=== PATIENT | female | born 1990 | race Caucasian/White ===

== ENCOUNTER 2017-07-17 05:57 | Emergency (ER) | payer MEDICAID ==
--- NOTE | 2017-07-17 07:28 | ER Document Report ---
HPI - HPI Patient complains to provider of: sore throat and fever Onset: Yesterday Onset/Duration: Gradual Pain Level: 4 Context: 27 yo female with sore throat, fever, odynophagia. No cough. Associated Symptoms: None Exacerbated by: Denies Relieved by: Denies - ROS ROS below otherwise negative: Yes Systems Reviewed and Negative: Yes All other systems reviewed and negative - CONSTITUTIONAL Constitutional: REPORTS: Fever - EENT EENT: REPORTS: Sore Throat Past Medical History - General Information source: Patient - Social History Smoking Status: Never Smoker Frequency of alcohol use: None Drug Abuse: None Lives with: Spouse/Significant other Family History: Reviewed & Not Pertinent Patient has suicidal ideation: No Patient has homicidal ideation: No - Medical History Medical History: Negative Renal/ Medical History: Denies: Hx Peritoneal Dialysis Surgical Hx: Negative Vertical Provider Document - CONSTITUTIONAL Agree With Documented VS: Yes Exam Limitations: No Limitations General Appearance: No Apparent Distress - INFECTION CONTROL TRAVEL OUTSIDE OF THE [place] IN LAST 30 DAYS: No - HEENT HEENT: Normocephalic, Pharyngeal Erythema - bright red. negative: Conjuctival Injection, Tympanic Membrane Red - NECK Neck: Supple, Lymphadenopathy-Left, Lymphadenopathy-Right - RESPIRATORY Respiratory: Breath Sounds Normal, No Respiratory Distress O2 Sat by Pulse Oximetry: 99 - CARDIOVASCULAR Cardiovascular: Regular Rate, Regular Rhythm - GI/ABDOMEN Gastrointestinal: Abdomen Soft, Abdomen Non-Tender, No Organomegaly - MUSCULOSKELETAL/EXTREMETIES Musculoskeletal/Extremeties: MAEW, FROM - NEURO Level of Consciousness: Awake, Alert, Appropriate - DERM Integumentary: No Rash Course - Vital Signs Vital signs: Temp Pulse Resp BP Pulse Ox 98.3 F 109 H 18 122/79 99 07/17/17 05:59 07/17/17 05:59 07/17/17 05:59 07/17/17 05:59 07/17/17 05:59 Discharge - Discharge Clinical Impression: Pharyngitis Qualifiers: Pharyngitis/tonsillitis etiology: other specified organisms Qualified Code(s): J02.8 - Acute pharyngitis due to other specified organisms Condition: Good Disposition: HOME, SELF-CARE Instructions: Acetaminophen, Anti-Inflammatory Medication ([facility]), Penicillin V K ([facility]), Sore Throat ([facility]) Additional Instructions: chloraseptic spray for the throat pain drink 2 liters of fluids today to prevent dehydartion penicillin for 10 days, continue even if you feel better to er if worse motrin and tylenol for pain and fever Prescriptions: Ibuprofen [Motrin 600 mg Tablet] 600 mg PO Q8HP PRN #30 tablet PRN Reason: Penicillin V Potassium [Penicillin Vk 500 mg Tablet] 500 mg PO QID #40 tablet
[2017-07-17] MEDS ORDERED: IBUPROFEN SUSP 100 MG/5 ML ORAL SYRINGE PO ONE (09:23)
[2017-07-17] MEDS ORDERED: PENICILLIN V POTASSIUM 500 MG TABLET PO ONE (09:23)
[2017-07-17] MEDS ORDERED: LIDOCAINE 2% VISCOUS SOLN 20 ML UDCUP PO ONE (09:24)
[2017-07-17] MEDS ORDERED: ACETAMINOPHEN SUSP 160 MG/5 ML ORAL SYRING PO ONE (09:24)
[2017-07-17] MEDS ORDERED: ONDANSETRON 4 MG TAB.RAPDIS PO ONE (09:24)
[2017-07-17] MEDS ORDERED: DEXAMETHASONE 4 MG TABLET PO ONE (09:28)
[2017-07-17 09:49] VITALS: BP 124/76
== END 2017-07-17 09:49 | disposition home or self-care (01) ==
LOC: ER 05:57
DX: J02.9 Acute pharyngitis, unspecified (principal); R50.9 Fever, unspecified; R59.0 Localized enlarged lymph nodes
CPT/HCPCS: 99283; 87880; J3490 ×4; S0119